=== PATIENT | female | born 1960 | race African-American/Black ===

== ENCOUNTER 2020-10-30 08:08 | Emergency (ER) | payer SELFPAY ==
[~2020-10-30] VITALS: Ht 162.6 cm; Wt 81.6 kg
[2020-10-30 08:10] VITALS: BP 139/99
[2020-10-30] MEDS ORDERED: LIDOCAINE 1% HCL (LOCAL ANESTH.) INJ 20ML MDV IJ ONE (09:00)
== END 2020-10-30 09:33 | disposition home or self-care (01) ==
LOC: ER 08:08
DX: N76.0 Acute vaginitis (principal)
CPT/HCPCS: 56405; 99283; J2001; 10060